=== PATIENT | male | born 1980 | race Caucasian/White ===

== ENCOUNTER 2017-08-24 08:08 | Emergency (ER) | payer BC, OTHER ==
[2017-08-24] MEDS ORDERED: Aspirin Low Dose CHEW TAB* 81 MG PO ONE (09:20)
[2017-08-24] MEDS ORDERED: Aspirin Low Dose CHEW TAB* 81 MG ONE (09:21)
[2017-08-24 09:35] VITALS: BP 149/67
--- NOTE | 2017-09-03 16:49 | UC ---
Joo Joyner Nilda, scribed for Enedelia Reinoso DO on 08/24/17 at 0846 . Abdominal Pain Male HPI - HPI Summary HPI Summary: This patient is a 37 year old M presenting to [facility] accompanied by with a chief complaint of constant epigastric abdominal pain that radiates to chest since last night. The patient rates the pain 7/10 in severity. Symptoms aggravated by PO intake and alleviated by position. Patient reports vomiting (7- 8 times last night), nausea, chills, and diaphoresis. He denies fever, cough, sore throat, myalgia, headache, rash, and diarrhea. - History of Current Complaint Chief Complaint: UCAbdominalPain Stated Complaint: ABD PAIN Time Seen by Provider: 08/24/17 08:20 Onset/Duration: Sudden Onset, Lasting Hours Timing: Constant Severity Currently: Severe Pain Intensity: 7 Pain Scale Used: 0-10 Numeric Location: Epigastric Aggravating Factor(s): Food Alleviating Factor(s): Position Associated Signs And Symptoms: Positive: Diaphoresis, Chest Pain, Decreased Appetite, Nausea, Vomiting. 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 - Family History Known Family History: Positive: Cardiac Disease, Hypertension, Other - glaucoma - Social History Alcohol Use: Weekly Substance Use Type: None Smoking Status (MU): Never Smoked Tobacco Review of Systems Constitutional: Chills, Other - negative fever Skin: Other - diaphoresis; negative rash Respiratory: Other - negative cough, sore throat Cardiovascular: Chest Pain Gastrointestinal: Abdominal Pain, Vomiting, Nausea, Other - negative diarrhea Musculoskeletal: Other: - negative myalgia Neurological: Other - negative headache All Other Systems Reviewed And Are Negative: Yes Physical Exam Triage Information Reviewed: Yes Appearance: Well-Appearing, No Pain Distress, Well-Nourished Vital Signs: Initial Vital Signs Temp 98.8 F 08/24/17 08:11 Pulse 70 08/24/17 08:11 Resp 16 08/24/17 08:11 BP 149/78 08/24/17 08:11 Pulse Ox 100 1012/17 08:11 Vital Signs Reviewed: Yes Eyes: Positive: Conjunctiva Clear. Negative: Discharge ENT: Positive: Hearing grossly normal. Negative: Muffled/hoarse voice Neck exam: Normal Neck: Positive: Supple Respiratory: Positive: Lungs clear, Normal breath sounds, No respiratory distress, No accessory muscle use Cardiovascular: Positive: RRR, No Murmur Abdomen Description: Positive: Soft, Other: - Epigastric tenderness. Negative: Distended, Guarding Bowel Sounds: Positive: Present Musculoskeletal Exam: Normal Neurological: Positive: Alert, Muscle Tone Normal Psychological Exam: Normal Psychological: Positive: Age Appropriate Behavior Skin Exam: Normal Skin: Positive: Other - Warm, Dry, Normal color Diagnostics - EKG Cardiac Rate: NL - 62 bpm Cardiac Rhythm: Other Rhythm: New - Left Anterior Ventricular Block in inferior leads, ST elevation, RBBB Abd Pain Male Course/Dx - Course Course Of Treatment: This patient is a 37 year old M presenting to [facility] accompanied by with a chief complaint of constant epigastric abdominal pain that radiates to chest since last night. The patient rates the pain 7/10 in severity. Symptoms aggravated by PO intake and alleviated by position. Patient reports vomiting (7-8 times last night), nausea, chills, and diaphoresis. He denies fever, cough, sore throat, myalgia, headache, rash, and diarrhea. High blood pressure noted. EKG reveals 62 bpm, RBBB, ST elevation ( seems like normal repol), Left Anterior Ventricular Block in inferior leads. The patient is stable and will be transferred to the ED with diagnoses of epigastric pain and chest pain. He was given an aspirin. The patient was offered ambulance transportation and instructed that [facility] would pay for the ambulance if his insurance did not. The patient refused services and will be transfered by private car. - Differential Dx/Clinical Impression Provider Diagnoses: Epigastric pain, Chest pain, and Elevated blood pressure without diagnosis of hypertension. Discharge - Discharge Plan Condition: Stable Disposition: AGAINST MEDICAL ADVICE Patient Education Materials: Epigastric Pain (ED), Chest Pain (ED) Referrals: Lorraine Monahan MD [Primary Care Provider] - Additional Instructions: Your blood pressure was elevated at this visit. That does not mean you have hypertension, it is probably due to your current condition. Please follow up with your primary care provider. The documentation as recorded by the scribeJoo Nilda accurately reflects the service I personally performed and the decisions made by , Enedelia Reinoso DO.
== END 2017-08-24 09:17 | disposition left against medical advice (07) ==
LOC: UCEAST 08:08
DX: R10.13 Epigastric pain (principal); R07.89 Other chest pain; R03.0 Elevated blood-pressure reading, without diagnosis of hypertension; R11.2 Nausea with vomiting, unspecified; R61 Generalized hyperhidrosis
CPT/HCPCS: 93005; 99212; A9270-GY; G0463

== ENCOUNTER 2017-08-24 09:52 | Emergency (ER) | payer OTHER ==
[2017-08-24] MEDS ORDERED: Aspirin Low Dose CHEW TAB* 81 MG PO ONE (10:25)
[2017-08-24] MEDS ORDERED: NS 0.9% 1000 ML* 1,000 ML IV ONE (10:25)
[2017-08-24 10:49] LABS: Hematocrit 44 % (42-52); Hemoglobin 14.7 g/dl (14.0-18.0); Mean Corpuscular HGB Conc 34 g/dl (31-36); Mean Corpuscular Hemoglobin 32 pg (27-31); Mean Corpuscular Volume 95 fL (80-94); Mean Platelet Volume 8 um3 (7.4-10.4); Red Blood Count 4.57 10^6/ul (4.0-5.4); Red Cell Distribution Width 13 % (10.5-15); White Blood Count 12.6 10^3/ul (3.5-10.8)
--- NOTE | 2017-08-24 10:51 | RAD ---
INDICATION: Chest pain. COMPARISON: There are no prior studies available for comparison. TECHNIQUE: Dual-energy PA and lateral views of the chest were obtained. FINDINGS: The heart is within normal limits in size. Mediastinal and hilar contours appear within normal limits. The lungs are clear. No pleural effusion or pneumothorax is seen. IMPRESSION: NO EVIDENCE FOR ACTIVE CARDIOPULMONARY DISEASE.
[2017-08-24 11:29] LABS: Albumin 4.3 g/dL (3.2-5.2); BUN/Creatinine Ratio 12.6 (8-20); Calcium 9.8 mg/dL (8.6-10.3); EGFR African American 125.6 (>60); EGFR Non-African American 97.7 (>60); Globulin 2.8 g/dL (2-4); Magnesium 1.7 mg/dL (1.9-2.7); Potassium 3.9 mmol/L (3.5-5.0); Total Bilirubin 0.7 mg/dL (0.2-1.0); Total Protein 7.1 g/dL (6.4-8.9)
[2017-08-24 11:38] LABS: TSH (Thyroid Stimulating Horm) 0.72 mcIU/mL (0.34-5.60)
[2017-08-24] MEDS ORDERED: Ondansetron INJ* 2 MG/ML VIAL IV ONE (12:55)
[2017-08-24] MEDS ORDERED: Famotidine IV* 10 MG/ML 2 ML (20 mg) IV SLOW PU ONE (12:55)
[2017-08-24 13:43] VITALS: BP 126/63
--- NOTE | 2017-08-25 08:25 | ED ---
Nasima Joyner Alfonso, scribed for Brian Sarmiento MD on 08/24/17 at 1030 . Abdominal Pain/Male - HPI Summary HPI Summary: This patient is a 37 year old M presenting to [facility] referred from urgent care accompanied by with a chief complaint of abdominal pain since 1999 yesterday. The abdominal pain radiated to his chest earlier today. The patient rates the pain 7/10 in severity. Symptoms aggravated by nothing. Symptoms alleviated by nothing. Patient reports nausea, and vomiting. Patient denies diarrhea. He reports eating steak a few days ago which he rarely consumes. He reports having a prescription for GERD when he was a child. - History of Current Complaint Chief Complaint: EDChestPainROMI Stated Complaint: STOMACH/CHEST PAIN/ VOMITTING Time Seen by Provider: 08/24/17 10:24 Hx Obtained From: Patient Onset/Duration: Sudden Onset, Lasting Hours, Still Present Timing: Constant, Lasting Hours - 1999 last night Severity Currently: Moderate Pain Intensity: 7 Pain Scale Used: 0-10 Numeric Radiates: Yes Radiates to: Chest Aggravating Factor(s): Nothing Alleviating Factor(s): Nothing Associated Signs And Symptoms: Positive: Other - nausea, and vomiting. 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 Infectious Disease History: No Infectious Disease History: 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 Negative: Diarrhea All Other Systems Reviewed And Are Negative: Yes Physical Exam - Summary Physical Exam Summary: VITAL SIGNS: Reviewed. GENERAL: Patient is a well-developed and nourished male who is lying comfortable in the stretcher. Patient is not in any acute respiratory distress. HEAD AND FACE: Normocephalic and atraumatic. EYES: PERRLA, EOMI x 2, No injected conjunctiva. EARS: Hearing grossly intact. Ear canals and tympanic membranes are WNL. MOUTH: Oropharynx within normal limits. NECK: Supple, trachea is midline, no adenopathy, no JVD. CHEST: Symmetric, no tenderness at palpation LUNGS: Clear to auscultation bilaterally. No wheezing or crackles. CVS: RRR, S1 and S2 present, no murmurs or gallops appreciated. ABDOMEN: Soft, non-tender. No signs of distention. Positive bowel sounds. No rebound no guarding, and no masses palpated. No abdominal bruit or pulsations. EXTREMITIES: FROM in all major joints, no edema, no cyanosis or clubbing. NEURO: Alert and oriented x 3. No acute neurological deficits. Speech is normal. SKIN: Dry and warm Triage Information Reviewed: Yes Vital Signs On Initial Exam: Initial Vitals Temp Pulse Resp BP Pulse Ox 97.8 F 64 17 131/64 100 08/24/17 10:07 08/24/17 10:07 08/24/17 10:07 08/24/17 10:07 08/24/17 10:07 Vital Signs Reviewed: Yes Diagnostics - Vital Signs Vital Signs Temp Pulse Resp BP Pulse Ox 08/24/17 10:07 97.8 F 64 17 131/64 100 - Laboratory Lab Results: Lab Results 08/24/17 08/24/17 08/24/17 Range/Units 10:39 10:39 10:39 WBC 12.6 H (3.5-10.8) 10^3/ul RBC 4.57 (4.0-5.4) 10^6/ul Hgb 14.7 (14.0-18.0) g/dl Hct 44 (42-52) % MCV 95 H (80-94) fL MCH 32 H (27-31) pg MCHC 34 (31-36) g/dl RDW 13 (10.5-15) % Plt Count 240 (150-450) 10^3/ul MPV 8 (7.4-10.4) um3 Neut % (Auto) 93.4 H (38-83) % Lymph % (Auto) 3.5 L (25-47) % [place] % (Auto) 2.6 (1-9) % Eos % (Auto) 0.1 (0-6) % Baso % (Auto) 0.4 (0-2) % Absolute Neuts (auto) 11.8 H (1.5-7.7) 10^3/ul Absolute Lymphs (auto) 0.4 L (1.0-4.8) 10^3/ul Absolute Monos (auto) 0.3 (0-0.8) 10^3/ul Absolute Eos (auto) 0 (0-0.6) 10^3/ul Absolute Basos (auto) 0.1 (0-0.2) 10^3/ul Absolute Nucleated RBC 0 10^3/ul Nucleated RBC % 0 D-Dimer, Quantitative < 200 (Less Than 230) ng/mL Sodium 136 (133-145) mmol/L Potassium 3.9 (3.5-5.0) mmol/L Chloride 102 (101-111) mmol/L Carbon Dioxide 23 (22-32) mmol/L Anion Gap 11 (2-11) mmol/L BUN 11 (6-24) mg/dL Creatinine 0.87 (0.67-1.17) mg/dL Est GFR ( Amer) 125.6 (>60) Est GFR (Non-Af Amer) 97.7 (>60) BUN/Creatinine Ratio 12.6 (8-20) Glucose 115 H (70-100) mg/dL Calcium 9.8 (8.6-10.3) mg/dL Magnesium 1.7 L (1.9-2.7) mg/dL Total Bilirubin 0.70 (0.2-1.0) mg/dL AST 16 (13-39) U/L ALT 21 (7-52) U/L Alkaline Phosphatase 34 (34-104) U/L Total Creatine Kinase 73 (10-223) U/L CK-MB (CK-2) 2.7 (0.6-6.3) ng/mL Troponin I 0.00 (<0.04) ng/mL Total Protein 7.1 (6.4-8.9) g/dL Albumin 4.3 (3.2-5.2) g/dL Globulin 2.8 (2-4) g/dL Albumin/Globulin Ratio 1.5 (1-3) TSH 0.72 (0.34-5.60) mcIU/mL 08/24/17 Range/Units 13:03 WBC (3.5-10.8) 10^3/ul RBC (4.0-5.4) 10^6/ul Hgb (14.0-18.0) g/dl Hct (42-52) % MCV (80-94) fL MCH (27-31) pg MCHC (31-36) g/dl RDW (10.5-15) % Plt Count (150-450) 10^3/ul MPV (7.4-10.4) um3 Neut % (Auto) (38-83) % Lymph % (Auto) (25-47) % [place] % (Auto) (1-9) % Eos % (Auto) (0-6) % Baso % (Auto) (0-2) % Absolute Neuts (auto) (1.5-7.7) 10^3/ul Absolute Lymphs (auto) (1.0-4.8) 10^3/ul Absolute Monos (auto) (0-0.8) 10^3/ul Absolute Eos (auto) (0-0.6) 10^3/ul Absolute Basos (auto) (0-0.2) 10^3/ul Absolute Nucleated RBC 10^3/ul Nucleated RBC % D-Dimer, Quantitative (Less Than 230) ng/mL Sodium (133-145) mmol/L Potassium (3.5-5.0) mmol/L Chloride (101-111) mmol/L Carbon Dioxide (22-32) mmol/L Anion Gap (2-11) mmol/L BUN (6-24) mg/dL Creatinine (0.67-1.17) mg/dL Est GFR ( Amer) (>60) Est GFR (Non-Af Amer) (>60) BUN/Creatinine Ratio (8-20) Glucose (70-100) mg/dL Calcium (8.6-10.3) mg/dL Magnesium (1.9-2.7) mg/dL Total Bilirubin (0.2-1.0) mg/dL AST (13-39) U/L ALT (7-52) U/L Alkaline Phosphatase (34-104) U/L Total Creatine Kinase (10-223) U/L CK-MB (CK-2) (0.6-6.3) ng/mL Troponin I 0.00 (<0.04) ng/mL Total Protein (6.4-8.9) g/dL Albumin (3.2-5.2) g/dL Globulin (2-4) g/dL Albumin/Globulin Ratio (1-3) TSH (0.34-5.60) mcIU/mL Result Diagrams: 08/24/17 10:39 08/24/17 10:39 Lab Statement: Any lab studies that have been ordered have been reviewed, and results considered in the medical decision making process. - Radiology CXR Radiology Interpretation Completed By: Radiologist - NO EVIDENCE FOR ACTIVE CARDIOPULMONARY DISEASE. ED physician has reviewed this radiology report and agrees. - EKG 1047 Cardiac Rate: NL - BPM 63 EKG Rhythm: Sinus Rhythm EKG Interpretation: No ST elevation. Normal axis Re-Evaluation - Re-Evaluation First Eval Re-Evaluation Time: 13:33 Change: Improved Comment: Pt is feeling much better. Labs and imaging results reviewed. Plan for discharge reviewed. Pt understands and agrees. Abdominal Pain Fem Course/Dx - Course Assessment/Plan: This patient is a 37 year old M presenting to [facility] referred from urgent care accompanied by with a chief complaint of abdominal pain since 1999 yesterday. The abdominal pain radiated to his chest earlier today. The patient rates the pain 7/10 in severity. Symptoms aggravated by nothing. Symptoms alleviated by nothing. Patient reports nausea, and vomiting. Patient denies diarrhea. He reports eating steak a few days ago which he rarely consumes. He reports having a prescription for GERD when he was a child. An EKG reveals NSR. CXR reveals NO EVIDENCE FOR ACTIVE CARDIOPULMONARY DISEASE. ED physician has reviewed this radiology report and agrees. Test results with no significant abnormalities except for WBC of 12.6. D-dimer is <200. First troponin is 0.00 and second troponin 4 hours later is also 0.00. In the ED course the patient was given IV fluids, Pepcid, and Zofran. After these medications all of his symptoms resolved. I discussed the findings and need for PCP follow up with the patient. The patient is agreeable with this plan. I don t believe the patient has CAD or PE since D-dimer and troponin are negative. The patient is hemodynamically stable and alert and oriented x3. - Diagnoses Differential Diagnosis/HQI/PQRI: ACS, Pneumonia Provider Diagnoses: Chest pain, atypical Discharge - Discharge Plan Condition: Stable Disposition: HOME Patient Education Materials: Chest Pain (ED) Referrals: Lorraine Monahan MD [Primary Care Provider] - 3 Days Additional Instructions: RETURN TO THE EMERGENCY DEPARTMENT FOR CHANGING OR WORSENING SYMPTOMS. The documentation as recorded by the Nasima fermin Alfonso accurately reflects the service I personally performed and the decisions made by me, Brian Sarmiento MD.
== END 2017-08-24 13:53 | disposition home or self-care (01) ==
LOC: ED 09:52
DX: R07.89 Other chest pain (principal); R11.2 Nausea with vomiting, unspecified; R10.9 Unspecified abdominal pain
CPT/HCPCS: 36415; 71020; 80053; 82550; 82553; 83735; 84443; 84484; 85025; 85379; 93005; 96374; 96375; 99282; A9270-GY; J2405